=== PATIENT | female | born 1975 | race Caucasian/White ===

== ENCOUNTER 2017-11-16 06:28 | Inpatient (IN) | payer BC, OTHER ==
[2017-11-16] MEDS: DEXAMETHASONE 1 MG TAB PO (07:38)
[2017-11-16] MEDS: traMADol 50 MG TAB PO (07:38)
[2017-11-16] MEDS: GABAPENTIN 300 MG CAP PO ×2 (07:38→20:14)
[2017-11-16] MEDS: LACTATED RINGER'S 1,000 ML IV ×3 (07:39→16:20)
[2017-11-16] MEDS ORDERED: LIDOCAINE 2% (SDV) 5 ML INJ (09:58)
[2017-11-16] MEDS ORDERED: CEFAZOLIN 1 GM INJ (09:58)
[2017-11-16] MEDS ORDERED: ONDANSETRON 4 MG INJ (09:58)
[2017-11-16] MEDS ORDERED: METOCLOPRAMIDE 10 MG INJ (09:58)
[2017-11-16] MEDS ORDERED: PROPOFOL 20 ML (09:58)
[2017-11-16] MEDS ORDERED: BUPIVACAINE 0.75%/DEXT (SPINAL) 2 ML INJ (09:59)
[2017-11-16] MEDS ORDERED: morphine SULFATE/PF (10 MG/10 ML) INJ (10:00)
[2017-11-16] MEDS: CEFAZOLIN 2 GM/50 ML (PMX) 50 ML IVPB (10:20)
[2017-11-16] MEDS: SOD CHLORIDE 0.9% 100 ML, TRANEXAMIC ACID 3,000 MG IRR (10:41)
[2017-11-16] MEDS: BUPIVACAINE 0.5% (SDV) 30 ML, morphine SULFATE (PF) 8 MG, EPINEPHrine 0.3 MG, KETOROLAC... IRR (10:41)
[2017-11-16] MEDS: CA CHLORIDE 10% 10 ML SYRINGE (10:42)
[2017-11-16] MEDS: THROMBIN 5000 UNIT VIAL (10:42)
[2017-11-16] MEDS: POLYMYXIN/BACITRACIN 1L IRRIG (10:43)
[2017-11-16] MEDS: TRANEXAMIC ACID 1,000 MG in DEXTROSE 5% 100 ML IVPB (10:45)
[2017-11-16] MEDS: DEXAMETHASONE 2 MG TAB PO ×2 (12:00→18:40)
[2017-11-16] MEDS ORDERED: MAGNESIUM HYDROXIDE 30ML CUP PO (12:00)
[2017-11-16] MEDS ORDERED: ZOLPIDEM 5 MG TAB PO (12:00)
[2017-11-16] MEDS ORDERED: OXYCODONE/ACETAMINOPHEN (5/325) TAB PO (12:00)
[2017-11-16] MEDS: ONDANSETRON 4 MG INJ IV ×2 (12:12→16:11)
[2017-11-16 12:24] LABS: ADD MAN DIFF? NO
[2017-11-16 12:26] LABS: BASOPHILS % 0.2 % (0.0-2.0); EOSINOPHILS % 0.2 % (0.0-7.0); HEMOGLOBIN 13.1 g/dl (12.0-16.0); LYMPHOCYTES # 2.4 10^3/ul (0.8-2.9); LYMPHOCYTES % 28.4 % (15.0-51.0); MEAN CORPUSCULAR HEMOGLOBIN 33.4 pg (29.0-33.0); MEAN CORPUSCULAR HGB CONC 33.6 g/dl (32.0-37.0); MEAN CORPUSCULAR VOLUME 99.5 fl (82.0-101.0); MEAN PLATELET VOLUME 9.8 fl (7.4-10.4); MONOCYTE # 0.3 10^3/ul (0.3-0.9); MONOCYTES % 3.2 % (0.0-11.0); NEUTROPHIL # 5.8 10^3/ul (1.6-7.5); NEUTROPHILS % 67.2 % (39.0-77.0); PLATELET COUNT 277 10^3/UL (140-415); RED BLOOD COUNT 3.92 10^6/ul (4.20-5.40); RED CELL DISTRIBUTION WIDTH 13.2 % (11.5-14.5)
[2017-11-16 12:26] LABS: WHITE BLOOD COUNT 8.6 10^3/ul (4.8-10.8)
[2017-11-16] MEDS ORDERED: DIPHENHYDRAMINE 50 MG INJ IV (12:30)
[2017-11-16] MEDS ORDERED: HYDROmorphONE 0.5 MG/0.5 ML SYG IV ×2 (12:30)
[2017-11-16] MEDS ORDERED: NALOXONE (0.4 MG/ML) INJ IV (12:30)
[2017-11-16] MEDS: CEFAZOLIN 1 GM/50 ML (PMX) 50 ML IVPB ×2 (12:50→20:13)
[2017-11-16] MEDS: TRANEXAMIC ACID 1,000 MG in DEXTROSE 5% 100 ML IV (13:39)
[2017-11-16] MEDS: SENNA/DOCUSATE NA (8.6MG/50MG) TAB PO (20:13)
[2017-11-16] MEDS: KETOROLAC 15 MG INJ IV (20:13)
[2017-11-17] MEDS: DEXAMETHASONE 2 MG TAB PO ×2 (00:06→06:14)
[2017-11-17] MEDS: ONDANSETRON 4 MG INJ IV ×2 (00:06→06:25)
[2017-11-17] MEDS: morphine 2 MG INJ IV ×3 (03:12→10:33)
[2017-11-17] MEDS: CEFAZOLIN 1 GM/50 ML (PMX) 50 ML IVPB (05:38)
[2017-11-17 05:50] LABS: ADD MAN DIFF? NO
[2017-11-17 06:05] LABS: BASOPHILS % 0.1 % (0.0-2.0); HEMATOCRIT 34.3 % (37.0-47.0); HEMOGLOBIN 11.4 g/dl (12.0-16.0); LYMPHOCYTES # 1.3 10^3/ul (0.8-2.9); LYMPHOCYTES % 12.8 % (15.0-51.0); MEAN CORPUSCULAR HEMOGLOBIN 33.4 pg (29.0-33.0); MEAN CORPUSCULAR HGB CONC 33.2 g/dl (32.0-37.0); MEAN CORPUSCULAR VOLUME 100.6 fl (82.0-101.0); MEAN PLATELET VOLUME 10.3 fl (7.4-10.4); MONOCYTE # 0.7 10^3/ul (0.3-0.9); MONOCYTES % 6.9 % (0.0-11.0); NEUTROPHIL # 7.8 10^3/ul (1.6-7.5); NEUTROPHILS % 79.9 % (39.0-77.0); PLATELET COUNT 232 10^3/UL (140-415); RED BLOOD COUNT 3.41 10^6/ul (4.20-5.40); RED CELL DISTRIBUTION WIDTH 13.4 % (11.5-14.5)
[2017-11-17 06:05] LABS: WHITE BLOOD COUNT 9.8 10^3/ul (4.8-10.8)
[2017-11-17] MEDS: LEVOTHYROXINE 125 MCG TAB PO (06:14)
[2017-11-17] MEDS: LACTATED RINGER'S 1,000 ML IV (06:18)
[2017-11-17] MEDS: DIPHENHYDRAMINE 50 MG INJ IV (06:38)
[2017-11-17] MEDS: ASPIRIN 81 MG TAB PO (09:10)
[2017-11-17] MEDS: SENNA/DOCUSATE NA (8.6MG/50MG) TAB PO (09:11)
[2017-11-17] MEDS: ACETAMINOPHEN 500 MG TAB PO (12:41)
[2017-11-17] MEDS: OXYCODONE/ACETAMINOPHEN (5/325) TAB PO (13:58)
== END 2017-11-17 14:06 | disposition home or self-care (01) | DRG 470 ==
LOC: REC 06:28 → MS1 14:43
PROVIDERS: Orthopaedic Surgery
PROC: 0SR904A Replacement of Right Hip Joint with Ceramic on Polyethylene Synthetic Substitute, Uncemented, Open Approach (ICD-10-PCS; principal; 2017-11-16 09:30)
DX: M16.51 Unilateral post-traumatic osteoarthritis, right hip (principal); E03.9 Hypothyroidism, unspecified
CPT/HCPCS: 72170; 73530; 84703; 85025; 86999; 87086; 97116; 97161; 97530